=== PATIENT | female | born 1995 | race Caucasian/White ===

== ENCOUNTER 2018-09-05 11:21 | Emergency (ER) | payer BC ==
[~2018-09-05] VITALS: Ht 157.5 cm; Wt 50.9 kg
[2018-09-05] MEDS ORDERED: MONO0.25 (11:35)
[2018-09-05] MEDS ORDERED: LIDOCAINE 2% MDV 20 ML VIAL SC ONE (12:15)
[2018-09-05 13:05] VITALS: BP 127/77
== END 2018-09-05 13:09 | disposition home or self-care (01) ==
LOC: M ED 11:21
DX: L60.0 Ingrowing nail (principal); Z88.0 Allergy status to penicillin; Z79.3 Long term (current) use of hormonal contraceptives

== ENCOUNTER → 2019-10-05 | Outpatient (REF) | payer BC ==
[~2019-10-05] MED LIST: MONO0.25
== END ==
LOC: M SFHCWAGY 13:52
PROVIDERS: ATTEND Obstetrics & Gynecology
DX: Z12.4 Encounter for screening for malignant neoplasm of cervix (principal)

== ENCOUNTER → 2019-10-13 | Outpatient (CLI) | payer BC | LOC: M PLALAB 08:05 | PROVIDERS: ATTEND Obstetrics & Gynecology | DX: Z13.79 Encounter for other screening for genetic and chromosomal anomalies (principal) ==

== ENCOUNTER 2020-08-06 07:18 | Emergency (ER) | payer BC ==
[~2020-08-06] VITALS: Ht 162.6 cm; Wt 61.4 kg
[2020-08-06] MEDS ORDERED: NS 1,000 ML IV SCH (07:35)
[2020-08-06] MEDS ORDERED: methylPREDNISolone 125MG 2ML VIAL IV ONE (07:45)
[2020-08-06] MEDS ORDERED: FAMOTIDINE INJ 20MG/2ML VIAL (S0028 PER 1) IVP ONE (07:45)
[2020-08-06] MEDS ORDERED: diphenhydrAMINE 50MG/ML VIAL (J1200) IV ONE (07:45)
[2020-08-06 09:00] VITALS: BP 128/70
[2020-08-06] MEDS ORDERED: PEPC1TAB5 PO (09:34)
[2020-08-06] MEDS ORDERED: PRED20TA PO (09:35)
[2020-08-06] MEDS ORDERED: BENA25CA4 PO (09:38)
== END 2020-08-06 10:57 | disposition home or self-care (01) ==
LOC: M ED 07:18 → EDBD 07:18 → M ED 10:57
DX: R22.0 Localized swelling, mass and lump, head (principal); T78.40XA Allergy, unspecified, initial encounter; Y92.89 Other specified places as the place of occurrence of the external cause; Z88.0 Allergy status to penicillin; Z79.3 Long term (current) use of hormonal contraceptives
CPT/HCPCS: 93041; 94760; 96361; 96374; 96375; 99285; J1200; J2930

== ENCOUNTER 2020-11-09 07:24 | Emergency (ER) | payer BC ==
[~2020-11-09] VITALS: Ht 157.5 cm; Wt 52.4 kg
[2020-11-09 07:24] VITALS: BP 154/93
[~2020-11-09 07:24] MED LIST changes: +BENA25CA4 PO; +PEPC1TAB5 PO; +PRED20TA PO
[2020-11-09] MEDS ORDERED: LIDOCAINE 5% (LIDODERM) PATCH TD ONE (08:20)
[2020-11-09] MEDS ORDERED: KETOROLAC 30 MG/ML 1ML VIAL IV ONE (08:20)
[2020-11-09] MEDS ORDERED: CYCLOBENZAPRINE 5MG TABLET PO ONE ×2 (08:20→10:00)
--- NOTE | 2020-11-09 09:15 | REP ---
INDICATION: midline pain, dec ROM neck and R shoulder. COMPARISON: None. TECHNIQUE: Axial CT images with multiplanar reformations. FINDINGS: There is straightening of the cervical spine in absence of normal cervical lordosis. Vertebral heights and disc heights are overall preserved. No fracture or subluxation. No significant degenerative changes. No significant canal or foraminal narrowing. Prevertebral soft tissues appear unremarkable. IMPRESSION: No acute findings. Normal examination. <Electronically signed by David Altamirano > 11/09/20 0940
[2020-11-09] MEDS ORDERED: MORPHINE 2 MG/ML 1ML VIAL (J2270) IV ONE (10:00)
[2020-11-09] MEDS ORDERED: ONDANSETRON 4MG/2ML VIAL IV ONE (10:00)
[2020-11-09] MEDS ORDERED: MORPHINE 4 MG/ML 1ML VIAL/SYRINGE (J2270) IV ONE (11:10)
[2020-11-09] MEDS ORDERED: IBUP80TA PO (11:41)
[2020-11-09] MEDS ORDERED: LIDO5DIS41 TOP (11:41)
[2020-11-09] MEDS ORDERED: CYCL5TAB PO (11:41)
[2020-11-09] MEDS ORDERED: **NOTE PATIENT COMMENT** MISC XX SCH (21:00)
== END 2020-11-09 12:45 | disposition home or self-care (01) ==
LOC: M ED 07:24
DX: S29.012A Strain of muscle and tendon of back wall of thorax, initial encounter (principal); X58.XXXA Exposure to other specified factors, initial encounter; Y92.89 Other specified places as the place of occurrence of the external cause; M62.838 Other muscle spasm; Z88.0 Allergy status to penicillin; Z79.3 Long term (current) use of hormonal contraceptives
CPT/HCPCS: 72125; 84702; 96374; 96375; 99283; J1885; J2270; J2405

== ENCOUNTER → 2022-02-14 | Outpatient (REF) ==
[~2022-02-14] MED LIST changes: +CYCL5TAB PO; +IBUP80TA PO; +LIDO5DIS41 TOP
== END ==
LOC: M EMP 09:37
PROVIDERS: ATTEND Family Medicine
DX: Z11.52 Encounter for screening for COVID-19 (principal)

== ENCOUNTER → 2023-08-21 | Outpatient (CLI) | payer BC ==
[2023-08-21 08:36] LABS: HCG, SERUM QUANTITATIVE < 2.6 MIU/ML (<4.2)
[2023-08-21 08:40] LABS: FOLLICLE STIMULATING HORMONE 6.8 mIU/ML
[2023-08-21 08:41] LABS: ESTRADIOL 26.1 PG/ML; LUTEINIZING HORMONE 8.3 mIU/ML; THYROID STIMULATING HORMONE 1.588 uIU/ML (0.55-4.78)
[2023-08-21 08:42] LABS: PROGESTERONE 0.79 NG/ML
== END ==
LOC: M RAD 07:04
PROVIDERS: ATTEND Obstetrics & Gynecology Reproductive Endocrinology
DX: N97.9 Female infertility, unspecified (principal)

== ENCOUNTER → 2023-08-27 | Outpatient (CLI) | payer BC ==
[2023-08-27 10:09] LABS: ESTRADIOL 49.9 PG/ML; LUTEINIZING HORMONE 13.3 mIU/ML
[2023-08-27 10:11] LABS: PROGESTERONE 0.47 NG/ML
== END ==
LOC: M RAD 08:50
PROVIDERS: ATTEND Obstetrics & Gynecology Reproductive Endocrinology
DX: Z31.83 Encounter for assisted reproductive fertility procedure cycle (principal)

== ENCOUNTER → 2023-08-31 | Outpatient (CLI) | payer BC ==
[2023-08-31 08:43] LABS: LUTEINIZING HORMONE 10.2 mIU/ML
[2023-08-31 08:44] LABS: ESTRADIOL 187.2 PG/ML; PROGESTERONE 0.6 NG/ML
== END ==
LOC: M RAD 07:10
PROVIDERS: ATTEND Obstetrics & Gynecology Reproductive Endocrinology
DX: Z31.83 Encounter for assisted reproductive fertility procedure cycle (principal)

== ENCOUNTER → 2023-09-08 | Outpatient (CLI) | payer BC ==
[2023-09-08 10:04] LABS: ESTRADIOL 84.2 PG/ML; PROGESTERONE 32.69 NG/ML
== END ==
LOC: M LAB 08:49
PROVIDERS: ATTEND Obstetrics & Gynecology Reproductive Endocrinology
DX: Z31.49 Encounter for other procreative investigation and testing (principal)

== ENCOUNTER → 2023-09-15 | Outpatient (CLI) | payer BC ==
[2023-09-15 09:30] LABS: HCG, SERUM QUANTITATIVE < 2.6 MIU/ML (<4.2)
[2023-09-15 09:34] LABS: PROGESTERONE 24.26 NG/ML
== END ==
LOC: M LAB 08:25
PROVIDERS: ATTEND Obstetrics & Gynecology Reproductive Endocrinology
DX: Z32.00 Encounter for pregnancy test, result unknown (principal)

== ENCOUNTER → 2023-09-21 | Outpatient (CLI) | payer BC ==
[2023-09-21 09:54] LABS: HCG, SERUM QUANTITATIVE < 2.6 MIU/ML (<4.2)
[2023-09-21 09:56] LABS: THYROID STIMULATING HORMONE 0.988 uIU/ML (0.55-4.78)
[2023-09-21 09:57] LABS: ESTRADIOL 59.4 PG/ML; LUTEINIZING HORMONE 8.1 mIU/ML
[2023-09-21 09:59] LABS: FOLLICLE STIMULATING HORMONE 5.6 mIU/ML
[2023-09-21 10:00] LABS: PROGESTERONE 0.49 NG/ML
== END ==
LOC: M RAD 07:47
PROVIDERS: ATTEND Obstetrics & Gynecology Reproductive Endocrinology
DX: N97.9 Female infertility, unspecified (principal)

== ENCOUNTER → 2023-09-28 | Outpatient (CLI) | payer BC ==
[2023-09-28 09:35] LABS: PROGESTERONE 0.69 NG/ML
[2023-09-28 09:36] LABS: LUTEINIZING HORMONE 7.8 mIU/ML
[2023-09-28 09:38] LABS: ESTRADIOL 102.2 PG/ML
== END ==
LOC: M RAD 07:19
PROVIDERS: ATTEND Obstetrics & Gynecology Reproductive Endocrinology
DX: Z31.83 Encounter for assisted reproductive fertility procedure cycle (principal)

== ENCOUNTER → 2023-09-30 | Outpatient (CLI) | payer BC ==
[2023-09-30 08:24] LABS: ESTRADIOL 238.7 PG/ML; LUTEINIZING HORMONE 8.8 mIU/ML; PROGESTERONE 0.83 NG/ML
== END ==
LOC: M RAD 07:10
PROVIDERS: ATTEND Obstetrics & Gynecology Reproductive Endocrinology
DX: Z31.83 Encounter for assisted reproductive fertility procedure cycle (principal)

== ENCOUNTER → 2023-10-08 | Outpatient (CLI) | payer BC ==
[2023-10-08 08:15] LABS: ESTRADIOL 205.7 PG/ML; PROGESTERONE 44.04 NG/ML
== END ==
LOC: M LAB 07:04
PROVIDERS: ATTEND Obstetrics & Gynecology Reproductive Endocrinology
DX: Z31.49 Encounter for other procreative investigation and testing (principal)

== ENCOUNTER → 2023-10-15 | Outpatient (CLI) | payer BC ==
[2023-10-15 08:11] LABS: HCG, SERUM QUANTITATIVE < 2.6 MIU/ML (<4.2)
[2023-10-15 08:15] LABS: PROGESTERONE 2.95 NG/ML
== END ==
LOC: M LAB 07:05
PROVIDERS: ATTEND Obstetrics & Gynecology Reproductive Endocrinology
DX: Z32.00 Encounter for pregnancy test, result unknown (principal)

== ENCOUNTER → 2023-10-20 | Outpatient (CLI) | payer BC ==
[2023-10-20 08:39] LABS: HCG, SERUM QUANTITATIVE < 2.6 MIU/ML (<4.2)
[2023-10-20 08:43] LABS: FOLLICLE STIMULATING HORMONE 5.3 mIU/ML; LUTEINIZING HORMONE 6.3 mIU/ML
[2023-10-20 08:44] LABS: ESTRADIOL 63.2 PG/ML; PROGESTERONE 0.74 NG/ML; THYROID STIMULATING HORMONE 1.533 uIU/ML (0.55-4.78)
== END ==
LOC: M RAD 07:13
PROVIDERS: ATTEND Obstetrics & Gynecology Reproductive Endocrinology
DX: Z31.83 Encounter for assisted reproductive fertility procedure cycle (principal)

== ENCOUNTER → 2023-10-27 | Outpatient (CLI) | payer BC ==
[2023-10-27 08:33] LABS: ESTRADIOL 164.1 PG/ML; LUTEINIZING HORMONE 6.8 mIU/ML; PROGESTERONE 0.73 NG/ML
== END ==
LOC: M RAD 07:05
PROVIDERS: ATTEND Obstetrics & Gynecology Reproductive Endocrinology
DX: N97.9 Female infertility, unspecified (principal)

== ENCOUNTER → 2023-11-04 | Outpatient (CLI) | payer BC ==
[2023-11-04 08:11] LABS: ESTRADIOL 68.6 PG/ML; PROGESTERONE 57.18 NG/ML
== END ==
LOC: M LAB 07:01
PROVIDERS: ATTEND Obstetrics & Gynecology Reproductive Endocrinology
DX: Z31.49 Encounter for other procreative investigation and testing (principal)

== ENCOUNTER → 2023-11-11 | Outpatient (CLI) | payer BC ==
[2023-11-11 07:59] LABS: HCG, SERUM QUANTITATIVE < 2.6 MIU/ML (<4.2)
[2023-11-11 08:03] LABS: PROGESTERONE 17.88 NG/ML
== END ==
LOC: M LAB 06:59
PROVIDERS: ATTEND Obstetrics & Gynecology Reproductive Endocrinology
DX: Z32.00 Encounter for pregnancy test, result unknown (principal)

== ENCOUNTER → 2023-11-18 | Outpatient (CLI) | payer BC ==
[2023-11-18 07:56] LABS: HCG, SERUM QUANTITATIVE < 2.6 MIU/ML (<4.2)
[2023-11-18 07:59] LABS: THYROID STIMULATING HORMONE 1.565 uIU/ML (0.55-4.78)
[2023-11-18 08:00] LABS: LUTEINIZING HORMONE 9.2 mIU/ML
[2023-11-18 08:01] LABS: ESTRADIOL 42.1 PG/ML; PROGESTERONE 0.76 NG/ML
== END ==
LOC: M RAD 07:02
PROVIDERS: ATTEND Obstetrics & Gynecology Reproductive Endocrinology
DX: Z31.83 Encounter for assisted reproductive fertility procedure cycle (principal)

== ENCOUNTER → 2023-11-23 | Outpatient (CLI) | payer BC ==
[2023-11-23 08:54] LABS: ESTRADIOL 61.9 PG/ML; LUTEINIZING HORMONE 12.1 mIU/ML
[2023-11-23 08:55] LABS: PROGESTERONE < 0.21 NG/ML
== END ==
LOC: M RAD 07:13
PROVIDERS: ATTEND Obstetrics & Gynecology Reproductive Endocrinology
DX: Z31.83 Encounter for assisted reproductive fertility procedure cycle (principal)

== ENCOUNTER → 2023-11-25 | Outpatient (CLI) | payer BC ==
[2023-11-25 08:21] LABS: ESTRADIOL 76.5 PG/ML; LUTEINIZING HORMONE 14.1 mIU/ML; PROGESTERONE 0.36 NG/ML
== END ==
LOC: M RAD 07:02
PROVIDERS: ATTEND Obstetrics & Gynecology Reproductive Endocrinology
DX: Z31.83 Encounter for assisted reproductive fertility procedure cycle (principal)

== ENCOUNTER → 2023-11-26 | Outpatient (CLI) | payer BC ==
[2023-11-26 08:15] LABS: LUTEINIZING HORMONE 12.3 mIU/ML
[2023-11-26 08:16] LABS: PROGESTERONE 0.42 NG/ML
== END ==
LOC: M RAD 07:01
PROVIDERS: ATTEND Obstetrics & Gynecology Reproductive Endocrinology
DX: N97.9 Female infertility, unspecified (principal)

== ENCOUNTER → 2023-12-04 | Outpatient (CLI) | payer BC ==
[2023-12-04 08:28] LABS: ESTRADIOL 208.8 PG/ML; PROGESTERONE 43.63 NG/ML
== END ==
LOC: M LAB 07:11
PROVIDERS: ATTEND Obstetrics & Gynecology Reproductive Endocrinology
DX: Z31.49 Encounter for other procreative investigation and testing (principal)

== ENCOUNTER → 2023-12-11 | Outpatient (CLI) | payer BC ==
[2023-12-11 10:07] LABS: HCG, SERUM QUANTITATIVE 2.9 MIU/ML (<4.2)
[2023-12-11 10:11] LABS: PROGESTERONE 1.35 NG/ML
== END ==
LOC: M LAB 08:39
PROVIDERS: ATTEND Obstetrics & Gynecology Reproductive Endocrinology
DX: Z32.00 Encounter for pregnancy test, result unknown (principal)

== ENCOUNTER → 2024-04-13 | Outpatient (CLI) | payer BC ==
[2024-04-13 11:40] LABS: HEMATOCRIT 41.3 % (36.0-47.0); HEMOGLOBIN 13.9 g/dl (12.0-15.5); MEAN CORPUSCULAR HEMOGLOBIN 29.4 pg (27.0-33.0); MEAN CORPUSCULAR HGB CONC 33.7 g/dl (32.0-36.5); MEAN CORPUSCULAR VOLUME 87.5 fl (80.0-96.0); PLATELET COUNT, AUTOMATED 221 10^3/uL (150-450); RED BLOOD COUNT 4.72 10^6/uL (4.00-5.40)
[2024-04-13 12:12] LABS: HEMOGLOBIN A1c 4.8 % (4.0-6.0)
[2024-04-13 12:13] LABS: THYROID STIMULATING HORMONE 1.494 uIU/ML (0.55-4.78)
[2024-04-13 12:14] LABS: PROLACTIN 12.88 NG/ML; TESTOSTERONE 32 NG/DL (14-76)
[2024-04-13 12:15] LABS: ALBUMIN 4.4 G/DL (3.2-5.2); ALKALINE PHOSPHATASE 54 U/L (46-116); ALT/SGPT 10 U/L (7.0-40); AST/SGOT 11 U/L (<34); BILIRUBIN,TOTAL 0.5 MG/DL (0.3-1.2); BLOOD UREA NITROGEN 13 MG/DL (9-23); CALCIUM LEVEL 10.1 MG/DL (8.5-10.1); CARBON DIOXIDE LEVEL 26 MMOL/L (20-31); CHLORIDE LEVEL 109 MMOL/L (98-107); CREATININE FOR GFR 0.85 MG/DL (0.55-1.30); GLOMERULAR FILTRATION RATE > 60.0 (>60); GLUCOSE, FASTING 80 MG/DL (60-100); POTASSIUM SERUM 3.9 MMOL/L (3.5-5.1); SODIUM LEVEL 141 MMOL/L (136-145); TOTAL 25(OH) VITAMIN D 30.6 NG/ML (20.0-100.0); TOTAL PROTEIN 7.6 G/DL (5.7-8.2)
[2024-04-13 12:25] LABS: HEPATITIS B SURFACE ANTIGEN NEGATIVE (NEGATIVE)
[2024-04-13 12:39] LABS: HIV 1&2 SCREEN NEGATIVE (NEGATIVE)
[2024-04-13 12:46] LABS: HEPATITIS C VIRUS ABY INDEX < 0.02 INDEX (<0.8)
[2024-04-14 12:48] LABS: HERPES ZOSTER, VARICELLA IgG 14.1 S/CO (>=1.00)
== END ==
LOC: M LAB 10:07
PROVIDERS: ATTEND Obstetrics & Gynecology Reproductive Endocrinology
DX: Z31.41 Encounter for fertility testing (principal)

== ENCOUNTER → 2024-04-25 | Outpatient (CLI) | payer BC ==
[2024-04-25 08:27] LABS: HCG, SERUM QUANTITATIVE < 2.6 MIU/ML (<4.2)
[2024-04-25 08:31] LABS: FOLLICLE STIMULATING HORMONE 5.3 mIU/ML; THYROID STIMULATING HORMONE 1.926 uIU/ML (0.55-4.78)
[2024-04-25 08:32] LABS: ESTRADIOL 79.6 PG/ML; LUTEINIZING HORMONE 6.9 mIU/ML; PROGESTERONE 0.56 NG/ML
== END ==
LOC: M RAD 07:29
PROVIDERS: ATTEND Obstetrics & Gynecology Reproductive Endocrinology
DX: Z31.83 Encounter for assisted reproductive fertility procedure cycle (principal)

== ENCOUNTER → 2024-05-19 | Outpatient (CLI) | payer BC ==
[2024-05-19 09:16] LABS: HCG, SERUM QUANTITATIVE < 2.6 MIU/ML (<4.2)
[2024-05-19 09:20] LABS: FOLLICLE STIMULATING HORMONE 6.5 mIU/ML; THYROID STIMULATING HORMONE 2.437 uIU/ML (0.55-4.78)
[2024-05-19 09:21] LABS: ESTRADIOL 42.2 PG/ML; LUTEINIZING HORMONE 5.7 mIU/ML
[2024-05-19 09:22] LABS: PROGESTERONE 0.91 NG/ML
== END ==
LOC: M RAD 07:29
PROVIDERS: ATTEND Obstetrics & Gynecology Reproductive Endocrinology
DX: Z31.83 Encounter for assisted reproductive fertility procedure cycle (principal)

== ENCOUNTER → 2024-05-23 | Outpatient (CLI) | payer BC ==
[2024-05-23 09:01] LABS: ESTRADIOL 95.2 PG/ML; LUTEINIZING HORMONE 9.7 mIU/ML; PROGESTERONE 0.89 NG/ML
== END ==
LOC: M RAD 07:43
PROVIDERS: ATTEND Obstetrics & Gynecology Reproductive Endocrinology
DX: Z31.83 Encounter for assisted reproductive fertility procedure cycle (principal)

== ENCOUNTER → 2024-05-25 | Outpatient (CLI) | payer BC ==
[2024-05-25 09:06] LABS: ESTRADIOL 177.1 PG/ML; LUTEINIZING HORMONE 4.1 mIU/ML; PROGESTERONE 1.34 NG/ML
== END ==
LOC: M RAD 07:48
PROVIDERS: ATTEND Obstetrics & Gynecology Reproductive Endocrinology
DX: Z31.83 Encounter for assisted reproductive fertility procedure cycle (principal)

== ENCOUNTER → 2024-05-27 | Outpatient (CLI) | payer BC ==
[2024-05-27 09:06] LABS: LUTEINIZING HORMONE 1.7 mIU/ML
[2024-05-27 09:07] LABS: ESTRADIOL 444.6 PG/ML; PROGESTERONE 2.08 NG/ML
== END ==
LOC: M RAD 07:43
PROVIDERS: ATTEND Obstetrics & Gynecology Reproductive Endocrinology
DX: Z31.83 Encounter for assisted reproductive fertility procedure cycle (principal)

== ENCOUNTER → 2024-05-30 | Outpatient (CLI) | payer BC ==
[2024-05-30 09:13] LABS: LUTEINIZING HORMONE 0.9 mIU/ML
[2024-05-30 09:14] LABS: ESTRADIOL 1564.2 PG/ML; PROGESTERONE 4.1 NG/ML
== END ==
LOC: M RAD 07:58
PROVIDERS: ATTEND Obstetrics & Gynecology Reproductive Endocrinology
DX: Z31.83 Encounter for assisted reproductive fertility procedure cycle (principal)

== ENCOUNTER → 2024-07-28 | Outpatient (CLI) | payer BC ==
[~2024-07-28] MED LIST changes: -CYCL5TAB PO; +CYCL5TAB4 PO
[2024-07-28 08:37] LABS: HCG, SERUM QUANTITATIVE < 2.6 MIU/ML (<4.2)
[2024-07-28 08:41] LABS: ESTRADIOL 42.1 PG/ML; THYROID STIMULATING HORMONE 0.624 uIU/ML (0.55-4.78)
[2024-07-28 08:42] LABS: FOLLICLE STIMULATING HORMONE 8.2 mIU/ML; LUTEINIZING HORMONE 10.9 mIU/ML
== END ==
LOC: M RAD 07:30
PROVIDERS: ATTEND Obstetrics & Gynecology Reproductive Endocrinology
DX: Z31.83 Encounter for assisted reproductive fertility procedure cycle (principal)

== ENCOUNTER → 2024-07-29 | Outpatient (CLI) | payer BC ==
[2024-07-29 08:44] LABS: HCG, SERUM QUANTITATIVE < 2.6 MIU/ML (<4.2)
[2024-07-29 08:49] LABS: ESTRADIOL 52.1 PG/ML; PROGESTERONE 2.79 NG/ML
== END ==
LOC: M LAB 07:43
PROVIDERS: ATTEND Obstetrics & Gynecology Reproductive Endocrinology
DX: Z32.00 Encounter for pregnancy test, result unknown (principal)

== ENCOUNTER → 2024-09-05 | Outpatient (CLI) | payer BC ==
[2024-09-05 09:12] LABS: HCG, SERUM QUANTITATIVE < 2.6 MIU/ML (<4.2)
[2024-09-05 09:16] LABS: LUTEINIZING HORMONE 9.9 mIU/ML; THYROID STIMULATING HORMONE 1.192 uIU/ML (0.55-4.78)
[2024-09-05 09:17] LABS: ESTRADIOL 35.3 PG/ML
== END ==
LOC: M RAD 07:51
PROVIDERS: ATTEND Obstetrics & Gynecology Reproductive Endocrinology
DX: Z31.83 Encounter for assisted reproductive fertility procedure cycle (principal)

== ENCOUNTER → 2024-09-12 | Outpatient (CLI) | payer BC ==
[2024-09-12 09:07] LABS: ESTRADIOL 311.4 PG/ML; LUTEINIZING HORMONE 30.6 mIU/ML; PROGESTERONE 0.55 NG/ML
== END ==
LOC: M RAD 08:08
PROVIDERS: ATTEND Obstetrics & Gynecology Reproductive Endocrinology
DX: Z31.83 Encounter for assisted reproductive fertility procedure cycle (principal)

== ENCOUNTER → 2024-09-23 | Outpatient (CLI) | payer BC ==
[2024-09-23 09:11] LABS: PROGESTERONE 55.92 NG/ML
[2024-09-23 09:12] LABS: ESTRADIOL 331.4 PG/ML
== END ==
LOC: M LAB 07:37
PROVIDERS: ATTEND Obstetrics & Gynecology Reproductive Endocrinology
DX: Z31.49 Encounter for other procreative investigation and testing (principal)

== ENCOUNTER → 2024-09-26 | Outpatient (CLI) | payer BC ==
[2024-09-26 08:26] LABS: HCG, SERUM QUANTITATIVE < 2.6 MIU/ML (<4.2)
[2024-09-26 08:29] LABS: PROGESTERONE 50.54 NG/ML
== END ==
LOC: M LAB 07:29
PROVIDERS: ATTEND Obstetrics & Gynecology Reproductive Endocrinology
DX: Z32.00 Encounter for pregnancy test, result unknown (principal)

== ENCOUNTER → 2025-04-26 | Outpatient (CLI) | payer BC ==
[~2025-04-26] MED LIST changes: +LIDO1ADH93 TOP; -LIDO5DIS41 TOP
[2025-04-26 08:30] LABS: HCG, SERUM QUANTITATIVE < 2.6 MIU/ML (<4.2)
[2025-04-26 08:34] LABS: LUTEINIZING HORMONE 6.5 mIU/ML
[2025-04-26 08:35] LABS: ESTRADIOL 57.2 PG/ML; PROGESTERONE 0.46 NG/ML
== END ==
LOC: M RAD 07:08
PROVIDERS: ATTEND Obstetrics & Gynecology Reproductive Endocrinology
DX: Z31.83 Encounter for assisted reproductive fertility procedure cycle (principal)

== ENCOUNTER → 2025-05-01 | Outpatient (CLI) | payer BC ==
[2025-05-01 08:45] LABS: ESTRADIOL 358.0 PG/ML; LUTEINIZING HORMONE 9.5 mIU/ML; PROGESTERONE < 0.21 NG/ML
== END ==
LOC: M RAD 07:27
PROVIDERS: ATTEND Obstetrics & Gynecology Reproductive Endocrinology
DX: E28.9 Ovarian dysfunction, unspecified (principal); Z31.83 Encounter for assisted reproductive fertility procedure cycle; N83.291 Other ovarian cyst, right side; N83.292 Other ovarian cyst, left side

== ENCOUNTER → 2025-05-12 | Outpatient (CLI) | payer BC ==
[2025-05-12 08:46] LABS: ESTRADIOL 270.0 PG/ML
[2025-05-12 09:05] LABS: PROGESTERONE 55.45 NG/ML
== END ==
LOC: M LAB 07:47
PROVIDERS: ATTEND Obstetrics & Gynecology Reproductive Endocrinology
DX: Z31.49 Encounter for other procreative investigation and testing (principal)

== ENCOUNTER → 2025-05-19 | Outpatient (CLI) | payer BC ==
[2025-05-19 08:41] LABS: HCG, SERUM QUANTITATIVE 220.8 MIU/ML (<4.2)
[2025-05-19 08:46] LABS: ESTRADIOL 288.8 PG/ML
[2025-05-19 09:04] LABS: PROGESTERONE 61.08 NG/ML
== END ==
LOC: M LAB 07:08
PROVIDERS: ATTEND Obstetrics & Gynecology Reproductive Endocrinology
DX: Z32.01 Encounter for pregnancy test, result positive (principal)

== ENCOUNTER → 2025-05-26 | Outpatient (CLI) | payer BC ==
[2025-05-26 08:38] LABS: ESTRADIOL 290.2 PG/ML
[2025-05-26 08:57] LABS: HCG, SERUM QUANTITATIVE 1682.0 MIU/ML (<4.2); PROGESTERONE 64.16 NG/ML
== END ==
LOC: M RAD 07:12
PROVIDERS: ATTEND Obstetrics & Gynecology Reproductive Endocrinology
DX: O09.01 Supervision of pregnancy with history of infertility, first trimester (principal); Z3A.01 Less than 8 weeks gestation of pregnancy

== ENCOUNTER → 2025-06-02 | Outpatient (CLI) | payer BC ==
[2025-06-02 08:10] LABS: ESTRADIOL 367.0 PG/ML
[2025-06-02 08:50] LABS: PROGESTERONE 55.03 NG/ML
== END ==
LOC: M RAD 07:08
PROVIDERS: ATTEND Obstetrics & Gynecology Reproductive Endocrinology
DX: O09.00 Supervision of pregnancy with history of infertility, unspecified trimester (principal); Z3A.01 Less than 8 weeks gestation of pregnancy

== ENCOUNTER → 2025-07-17 | Outpatient (CLI) | payer BC ==
[2025-07-17 08:37] LABS: PLATELET COUNT, AUTOMATED 300 10^3/uL (150-450)
[2025-07-17 11:01] LABS: Trichomonas vaginalis (AMP) NOT DETECTED (NEGATIVE)
[2025-07-17 11:25] LABS: GC DNA AMPLIFICATION NEGATIVE (NEGATIVE)
[2025-07-19 05:25] LABS: HIV 1&2 SCREEN NEGATIVE (NEGATIVE)
[2025-07-19 05:34] LABS: HEPATITIS C VIRUS ABY INDEX 0.05 INDEX (<0.8)
== END ==
LOC: M LAB 08:10
PROVIDERS: ATTEND Obstetrics & Gynecology
DX: Z34.91 Encounter for supervision of normal pregnancy, unspecified, first trimester (principal)